=== PATIENT | female | born 1965 | race Caucasian/White ===

== ENCOUNTER → 2023-10-04 13:58 | Outpatient (CLI) | payer OTHER, SELFPAY ==
--- NOTE | 2023-10-04 14:01 | DI.ECHO.S_ITS ---
[facility] +---------+ : : [address] [place] : : : : [id number] : : : : Phone: [phone]---------+ Echocardiogram Report + + :Name: DANY CORDOVA Study Date: 10/04/2023 Height: 67 in : :[facility] ReadingLocation: Weight: 305 lb : : Gender: Female BSA: 2.4 m2 : :: 1965 Age: 58 yrs BP: 139/80 mmHg: :Reason For Study: ATRIAL FIBRILLATION/HEART FAILURE : :Ordering Physician: ARTURO, : :PRESTON Performed By: Elisabet Flores : :Referring: PRESTON BHARDWAJ : + + Interpretation Summary The left ventricle is normal in size. Left ventricular systolic function appears normal without focal wall motion abnormalities. The ejection fraction is estimated to be 60-65%. The right ventricle is mildly dilated. The right ventricular systolic function is normal. The right ventricular systolic pressure is estimated to be at least 34 mmHg based on an estimated right atrial pressure of 3 mm Hg. The left atrium is moderately dilated. There is no significant valvular heart disease. The aortic root is normal size. There is a trivial pericardial effusion noted. Procedure: A two-dimensional transthoracic echocardiogram with color flow and Doppler was performed. The study quality was technically adequate. There is no prior echocardiogram noted for this patient. The patient was in atrial fibrillation with heart rates between 67-95 bpm during the exam. Left Ventricle: The left ventricle is normal in size. There is mild concentric left ventricular hypertrophy. Left ventricular systolic function appears normal without focal wall motion abnormalities. The ejection fraction is estimated to be 60-65%. Diastolic function could not be accurately assessed due to atrial fibrillation. Right Ventricle: The right ventricle is mildly dilated. The right ventricular systolic function is normal. Atria: The left atrium is moderately dilated. Right atrial size is normal. There is no Doppler evidence for an interatrial shunt. Mitral Valve: The mitral valve is normal in structure and function. There is trace mitral regurgitation. Aortic Valve: The aortic valve is not well visualized. There is no aortic valve stenosis. No aortic regurgitation is present. Tricuspid Valve: The tricuspid valve is normal in structure and function. There is trace tricuspid regurgitation. The right ventricular systolic pressure is estimated to be at least 34 mmHg based on an estimated right atrial pressure of 3 mm Hg. Pulmonic Valve: The pulmonic valve is not well visualized. There is no pulmonic valvular regurgitation. There is no significant valvular heart disease. Great Vessels: The aortic root is normal size. The dimensions of the ascending aorta are normal. The IVC is of normal diameter and collapses greater than 50% with a sniff. This suggests a low right atrial pressure of 3 mm Hg. Pericardium/ Pleura There is a trivial pericardial effusion noted. There is no pleural effusion. MMode/2D Measurements & Calculations LVIDd: 4.6 cm LVOT diam: 2.1 cm LVIDs: 3.3 cm Ao root diam: 3.3 cm FS: 27.1 % asc Aorta Diam: 3.5 cm EPSS: 0.68 cm Ao Arch Diam (Prox Trans): 2.9 cm IVSd: 1.2 cm LVPWd: 1.1 cm LV nava. diameter/BSA (cm/m^2): 1.9 LV sys. diameter/BSA (cm/m^2): 1.4 LA A2 area: 28.1 cm2 RA long axis: 5.9 cm LA A4 area: 27.9 cm2 RA area: 22.3 cm2 LA length (vol): 6.2 cm RA vol: 70.8 ml LA vol: 107.0 ml RA : 29.3 ml/m2 LA vol index: 44.2 ml/m2 IVC diam: 1.8 cm RVD1 (basal): 4.5 cm RVD2 (mid): 3.7 cm TAPSE: 1.7 cm Doppler Measurements & Calculations Ao V2 max: 156.2 cm/sec LVOT Max Vern: 84.1 cm/sec Ao V2 mean: 117.0 cm/sec LV V1 max P.8 mmHg Ao max P.8 mmHg LV V1 VTI: 19.1 cm Ao mean P.9 mmHg CARLTON(I,D): 2.2 cm2 Ao V2 VTI: 30.7 cm CARLTON(V,D): 1.9 cm2 sev ratio: 0.62 CARLTON indexed to BSA (cm^2/m^2): 0.91 MV E max vern: 109.3 cm/sec TR max vern: 282.4 cm/sec MV A max vern: 1.7 cm/sec TR max P.9 mmHg MV E/A: 64.9 Med Peak E' Vern: 8.6 cm/sec E/E' med: 12.7 Lat Peak E' Vern: 13.1 cm/sec E/E' lat: 8.3 E/e' average: 10.5 MV dec time: 0.10 sec MVA(VTI): 2.4 cm2 MV V2 mean: 76.6 cm/sec SV(LVOT): 67.4 ml MV mean P.0 mmHg MV V2 VTI: 28.0 cm Reading Physician:09:02 AM
== END ==
LOC: ECHO 14:00
PROVIDERS: PCP Nurse Practitioner Family; Referring Provider Internal Medicine Cardiovascular Disease; Visit Provider Internal Medicine Cardiovascular Disease
DX: I48.21 Permanent atrial fibrillation (principal); I50.32 Chronic diastolic (congestive) heart failure
CPT/HCPCS: 93306